=== PATIENT | male | born 1955 | race Caucasian/White ===

== ENCOUNTER 2016-10-15 09:44 | Emergency (ER) | payer OTHER ==
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
[2016-10-15] MEDS ORDERED: HYDROcodone/APAP 5-325MG 1 EACH TAB PO STA (12:04)
--- NOTE | 2016-10-15 12:16 | US ---
EXAMINATION TYPE: US venous doppler duplex UE LT DATE OF EXAM: 10/15/2016 12:00 PM COMPARISON: NONE CLINICAL HISTORY: Pain. SIDE PERFORMED: LEFT TECHNOLOGIST IMPRESSION: PATIENT IN EXTREME PAIN, UNABLE TO LIE BACK FOR RIGHT SUBCLAVIAN COMPARISON Left Arm: Negative for DVT IMPRESSION: THIS EXAMINATION IS SOMEWHAT LIMITED BUT NEGATIVE FOR DVT WITHIN THE LEFT UPPER EXTREMITY.
--- NOTE | 2016-10-15 13:06 | XR ---
EXAMINATION TYPE: XR wrist complete LT DATE OF EXAM: 10/15/2016 10:52 AM CLINICAL HISTORY: Wrist pain for 2 weeks. TECHNIQUE: Frontal, lateral, scaphoid, and oblique images of the left wrist are obtained. COMPARISON: None FINDINGS: There is no acute fracture/dislocation evident in the left wrist. Round lucency consistent with subchondral cystic change in the lunate is present. The overlying soft tissue appears unremark able. IMPRESSION: There is no acute fracture or dislocation in the left wrist. Suspect subchondral cystic change at level of lunate bone.
--- NOTE | 2016-10-15 13:06 | XR ---
EXAMINATION TYPE: XR elbow complete LT DATE OF EXAM: 10/15/2016 10:52 AM CLINICAL HISTORY: Left elbow pain for 2 weeks. TECHNIQUE: Frontal, lateral and oblique images of the left elbow are obtained. COMPARISON: None FINDINGS: There is no acute fracture/dislocation evident in the left elbow. No abnormal fat pad sig ns are seen. Mild spurring at ulnohumeral articulation is present. The overlying soft tissue appears unremarkable. IMPRESSION: Mild spurring ulnohumeral joint.
[2016-10-15 13:20] VITALS: BP 136/79; PULSE 84; RESP 16; TEMP 97.8
== END 2016-10-15 13:21 | disposition home or self-care (01) ==
LOC: EC 09:44
DX: R60.0 Localized edema (principal); M79.602 Pain in left arm; E11.9 Type 2 diabetes mellitus without complications; E78.5 Hyperlipidemia, unspecified; M19.90 Unspecified osteoarthritis, unspecified site; F17.200 Nicotine dependence, unspecified, uncomplicated; Z79.84 Long term (current) use of oral hypoglycemic drugs; Z98.890 Other specified postprocedural states; Z79.899 Other long term (current) drug therapy
CPT/HCPCS: 99284

== ENCOUNTER → 2018-02-08 | Outpatient (CLI) | payer OTHER ==
[2018-02-08 16:21] LABS: Basophils % (A) 0 %; Eosinophils # (A) 0.3 k/uL (0-0.7); Eosinophils % (A) 4 %; HCT 41.3 % (39.0-53.0); HGB 13.8 gm/dL (13.0-17.5); Lymphocytes # (A) 2.4 k/uL (1.0-4.8); Lymphocytes % (A) 36 %; MCH 30.1 pg (25.0-35.0); MCHC 33.4 g/dL (31.0-37.0); MCV 90.1 fL (80.0-100.0); Monocytes # (A) 0.3 k/uL (0-1.0); Monocytes % (A) 5 %; Neutrophils # (A) 3.6 k/uL (1.3-7.7); Neutrophils % (A) 54 %; Platelet Count 356 k/uL (150-450); RBC 4.59 m/uL (4.30-5.90); RDW 12.4 % (11.5-15.5); WBC 6.6 k/uL (3.8-10.6)
== END | disposition home or self-care (01) ==
LOC: LABWHC1 15:31
PROVIDERS: ATTEND Psychiatry & Neurology Pain Medicine
DX: G89.18 Other acute postprocedural pain (principal)
CPT/HCPCS: 36415; 85025

== ENCOUNTER → 2018-07-09 | Outpatient (CLI) | payer OTHER ==
[2018-07-09 12:07] LABS: Basophils % (A) 1 %; Eosinophils # (A) 0.3 k/uL (0-0.7); Eosinophils % (A) 5 %; HGB 13.9 gm/dL (13.0-17.5); Lymphocytes # (A) 3.5 k/uL (1.0-4.8); Lymphocytes % (A) 54 %; MCH 29.3 pg (25.0-35.0); MCHC 33.1 g/dL (31.0-37.0); MCV 88.5 fL (80.0-100.0); Monocytes # (A) 0.4 k/uL (0-1.0); Monocytes % (A) 6 %; Neutrophils # (A) 2.2 k/uL (1.3-7.7); Neutrophils % (A) 33 %; Platelet Count 298 k/uL (150-450); RBC 4.74 m/uL (4.30-5.90); RDW 12.2 % (11.5-15.5); WBC 6.6 k/uL (3.8-10.6)
== END | disposition home or self-care (01) ==
LOC: LABWHC1 11:19
PROVIDERS: ATTEND Psychiatry & Neurology Pain Medicine
DX: S31.109A Unspecified open wound of abdominal wall, unspecified quadrant without penetration into peritoneal cavity, initial encounter (principal)
CPT/HCPCS: 36415; 85025

== ENCOUNTER 2020-10-18 06:46 | Day surgery (SDC) | payer MEDICARE, OTHER ==
[2020-10-16 11:01] VITALS: BMI 23.9
[~2020-10-18 06:46] MED LIST: LIDOCAINE 1% (10MG/ML) FOR IV START INTRADERMA PRN
[2020-10-18 07:14] LABS: Glucose,Whole Blood 172 mg/dL (75-99)
[2020-10-18] MEDS: LACTATED RINGERS 1,000 ML IV SCH ×2 (07:16→07:50)
[2020-10-18] MEDS ORDERED: PROPOFOL 10 MG/ML 20 ML VIAL IV ONE (07:51)
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
--- NOTE | 2020-10-18 08:07 | P.OP ---
Date of Procedure: 10/18/20 Preoperative Diagnosis: Screening colonoscopy Postoperative Diagnosis: Mild diverticulosis Procedure(s) Performed: Colonoscopy Anesthesia: MAC Surgeon: Ermias Irving Pathology: none sent Condition: stable Disposition: PACU Description of Procedure: The patient's placed on the endoscopy table in the lateral position. He received IV sedation. Digital rectal exam was performed which revealed no abnormalities. The prostate was symmetric without nodules. Flexible colonoscope was then placed patient anus and passed throughout the entire colon. The ileocecal valve was visualized. Cecum, ascending and transverse colon appeared normal. In the descending and sigmoid colon there is mild diverticular changes. Scope was then brought back the rectum and this appeared normal. Scope withdrawn for patient.
[2020-10-18 08:30] VITALS: BP 110/72; PULSE 88; RESP 20
== END 2020-10-18 08:35 | disposition home or self-care (01) ==
LOC: ORWHC2ENDO 06:46
PROVIDERS: ATTEND Surgery
DX: Z12.11 Encounter for screening for malignant neoplasm of colon (principal); K57.30 Diverticulosis of large intestine without perforation or abscess without bleeding; E11.9 Type 2 diabetes mellitus without complications; K21.9 Gastro-esophageal reflux disease without esophagitis; E78.5 Hyperlipidemia, unspecified; I10 Essential (primary) hypertension; M19.90 Unspecified osteoarthritis, unspecified site; Z90.89 Acquired absence of other organs; Z98.1 Arthrodesis status; Z98.890 Other specified postprocedural states; F17.200 Nicotine dependence, unspecified, uncomplicated; Z80.9 Family history of malignant neoplasm, unspecified; Z80.42 Family history of malignant neoplasm of prostate; Z80.3 Family history of malignant neoplasm of breast; Z79.84 Long term (current) use of oral hypoglycemic drugs; Z79.891 Long term (current) use of opiate analgesic; Z79.899 Other long term (current) drug therapy
CPT/HCPCS: J2704; G0121

== ENCOUNTER → 2022-01-06 | Outpatient (CLI) | payer MEDICARE, OTHER ==
--- NOTE | 2022-01-06 16:01 | XR ---
Thoracic spine and lumbosacral spine HISTORY: Mid and low back pain 3 views of the thoracic spine, 5 views of lumbosacral spine correlated to prior thoracic spine 09/25/19 13, lumbar spine 09/07/2012 The thoracic spine shows a similar appearance. There is multilevel spondylosis present. Thoracic vert ebral bodies show preserved height and alignment, bone mineralization. Disc spaces are similar, some mild loss of disc height at the intervertebral levels. The lumbar spine shows postoperative change status post lumbosacral fusion L5-S1, intervertebral spac ing block is present, there is associated loss of disc height. Multilevel spondylosis is present. Scl erosis in the posterior elements is consistent with facet arthropathy. Lumbar vertebral bodies show p reserved height, alignment, bone mineralization. There is a punctate metallic density present superim posed over the inferior aspect of the L1 vertebral body posterior elements which is indeterminate. IMPRESSION: Degenerative disc disease, postop changes, indeterminate foreign body noted is an interva l finding.
== END | disposition home or self-care (01) ==
LOC: RADXRMAIN 12:20
PROVIDERS: ATTEND Internal Medicine
DX: M51.34 Other intervertebral disc degeneration, thoracic region (principal); M47.814 Spondylosis without myelopathy or radiculopathy, thoracic region; M47.816 Spondylosis without myelopathy or radiculopathy, lumbar region
CPT/HCPCS: 72072; 72110

== ENCOUNTER → 2022-10-16 | Outpatient (CLI) | payer MEDICARE, OTHER ==
--- NOTE | 2022-10-16 12:30 | XR ---
EXAMINATION TYPE: XR chest 2V DATE OF EXAM: 10/16/2022 COMPARISON: 01/06/2022, 09/24/2012 HISTORY: Smoking and family history of lung cancer TECHNIQUE: Frontal and lateral views of the chest are obtained. FINDINGS: The heart is not enlarged and there is no pulmonary vascular congestion. The lungs are jose a ar and there is no pneumothorax. Osseous density projecting at the lateral aspect of the T9 vertebral body/costovertebral junction is unchanged and present going back to 09/24/2012. There are mild degener ative changes of the thoracic spine which are stable. IMPRESSION: No acute cardiopulmonary process.
== END | disposition home or self-care (01) ==
LOC: RADXRMAIN 11:16
PROVIDERS: ATTEND Internal Medicine
DX: R05.9 Cough, unspecified (principal); Z80.1 Family history of malignant neoplasm of trachea, bronchus and lung
CPT/HCPCS: 71046

== ENCOUNTER → 2022-12-11 | Outpatient (CLI) | payer MEDICARE, OTHER ==
--- NOTE | 2022-12-11 10:07 | MR ---
EXAMINATION TYPE: MR tspine/lspine wo con DATE OF EXAM: 12/11/2022 COMPARISON: MRI lumbar spine December 18, 2012. Thoracic and lumbar spine x-ray January 06, 2022 HISTORY: chronic back pain. History of low back surgery 2008. TECHNIQUE: Multiplanar, multisequence imaging of the thoracic and lumbar spine are performed without IV contrast. FINDINGS: T-SPINE: Spinal cord shows normal course, caliber, and signal as it courses the thoracic spine. Vertebral bod y heights and alignment are satisfactory. No significant posterior disc herniation seen on sagittal i mages. Bone marrow signal intensity is maintained. Review of the axial images shows no significant spinal canal stenosis or neural foraminal narrowing a t any thoracic level. Visualized thorax and upper abdomen show no suspicious abnormality. IMPRESSION: No significant abnormality is seen to account for patient's symptoms. L-SPINE: FINDINGS: Sagittal images of the lumbar spine show vertebral body heights and alignment to appear sta ble and satisfactory. Artifact from posterior interpedicular rods and screws and disc material L5-S1 level is redemonstrated. Multilevel disc desiccation superior to this. Persistent moderate disc space narrowing with heterogeneous type III endplate changes T12-L1 level is redemonstrated. The conus med ullaris remains normal in position and signal ending mid L1 level. The bone marrow signal intensity is within normal limits. Mild to moderate multilevel anterior spurring is seen. Axial images show T12-L1 level show no significant new disc herniation. Spinal canal is preserved. Axial images at L1-L2 and L2-L3 levels remain within normal limits. Axial images at L3-L4 level redemonstrate mild facet arthropathy bilaterally. Spinal canal is preserv ed. Axial images at L4-L5 level redemonstrate Mild facet arthropathy bilaterally. Spinal canal is preser marcos. axial images at L5-S1 level show artifact from disc material and posterior fusion hardware. Successfu l Posterior decompression changes are redemonstrated. Paraspinal muscle bulk is maintained. Roughly 1.9 x 1.2 cm right adrenal mass axial image 30 is redem onstrated. Correlate clinically. This is nonspecific. IMPRESSION: Successful posterior decompression changes lower lumbar spine. Alignment stable and satis factory. No new disc herniations are evident.
== END | disposition home or self-care (01) ==
LOC: RADMRIMAIN 07:05
PROVIDERS: ATTEND Internal Medicine
DX: M54.50 Low back pain, unspecified (principal); G89.29 Other chronic pain
CPT/HCPCS: 72146; 72148

== ENCOUNTER → 2023-02-12 | Outpatient (CLI) | payer MEDICARE, OTHER ==
[2023-02-12 10:09] VITALS: BP 103/53; PULSE 110; RESP 15
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
== END ==
LOC: PNWHC3 09:32
PROVIDERS: ATTEND Specialist
DX: M96.1 Postlaminectomy syndrome, not elsewhere classified (principal); M19.90 Unspecified osteoarthritis, unspecified site; E11.9 Type 2 diabetes mellitus without complications; K21.9 Gastro-esophageal reflux disease without esophagitis; E78.5 Hyperlipidemia, unspecified; I10 Essential (primary) hypertension; F17.200 Nicotine dependence, unspecified, uncomplicated; Z79.899 Other long term (current) drug therapy; Z79.84 Long term (current) use of oral hypoglycemic drugs
CPT/HCPCS: 99211

== ENCOUNTER → 2023-03-05 | Outpatient (CLI) | payer MEDICARE, OTHER ==
--- NOTE | 2023-03-05 12:08 | CA ---
Exercise Stress Test Report Name: Christiano Willis Exam Date: 03/05/2023 09:16 Exam Location: [facility] Stress Ht (in): 69 Wt (lb): 165 BSA: 1.90 Ordering Phys: Govind James MD Referring Phys: GOVIND JAMES,, Technologist: Jeff Cervantes Age: 67 Gender: M : 1955 Procedure CPT: Indications: R07.9 CHEST PAIN, UNSPECIFIED ICD-10 Codes: Patient History: Chest pain Medications: Meds past 24 hrs: Pretest Chest Pain: STRESS TEST Ronald Protocol Exercise Duration (min:sec): 06:[address] Depressions (mm): Angina Score: Yu Score: Resting HR (bpm): 83 Peak HR (bpm): 158 Resting BP (mmHg): 104 / 71 Peak BP (mmHg): 167 / 81 MPHR: 155 Target HR: 132 % MPHR: 102 METS: 7.1 Total Dose: Peak Dose: Atropine: Double Product: 48702 BP Response: Stress Termination: Reached target heart rate Stress Symptoms: No chest pain or symptoms Stress Summary: ECG ANALYSIS Resting ECG: Normal sinus rhythm, normal axis Stress ECG: No significant ST or T-wave changes that are diagnostic for ischemia by ST segment analysis. There were no sustained arrhythmias or ectopic rhythms. CONCLUSIONS Fair exercise tolerance for age achieving 7.1 mets Normal hemodynamic and heart rate response to treadmill exercise Nonischemic ECG response to treadmill exercise Normal treadmill stress test Dr Scooter Jane (Electronically Signed) Final Date: 05 March 2023 12:08
== END | disposition home or self-care (01) ==
LOC: RADNMMAIN 08:47
PROVIDERS: ATTEND Internal Medicine
DX: I20.9 Angina pectoris, unspecified (principal); R07.9 Chest pain, unspecified
CPT/HCPCS: 93017

== ENCOUNTER → 2023-08-13 | Outpatient (CLI) | payer MEDICARE, OTHER ==
--- NOTE | 2023-08-13 13:28 | XR ---
EXAMINATION TYPE: XR knee complete bilateral DATE OF EXAM: 08/13/2023 COMPARISON: NONE HISTORY: Pain TECHNIQUE: Three views are submitted. FINDINGS: Mild bilateral narrowing of the medial compartment of the knee joint. There is vascular calcification s. No erosive changes.. Osseous structures are intact. No acute fracture seen. IMPRESSION: 1. Mild bilateral osteoarthritis..
== END | disposition home or self-care (01) ==
LOC: RADXRMAIN 12:42
PROVIDERS: ATTEND Internal Medicine
DX: M17.0 Bilateral primary osteoarthritis of knee (principal)

== ENCOUNTER 2025-01-16 05:45 | Day surgery (SDC) | payer MEDICARE, OTHER ==
[2025-01-13 08:56] VITALS: BMI 24.3
[2025-01-16] MEDS ORDERED: ALPRAZolam 0.25 MG TAB PO PRN (05:56)
[2025-01-16] MEDS ORDERED: NITROGLYCERIN SL TABS 0.4 MG TAB SUBLINGUAL PRN ×2 (05:56→08:46)
[2025-01-16] MEDS ORDERED: ALPRAZolam 0.5 MG TAB PO PRN (05:56)
[2025-01-16] MEDS ORDERED: ATORVASTATIN 80 MG TAB PO STA (05:56)
[2025-01-16] MEDS: SODIUM CHLORIDE 0.9% 1,000 ML in EMPTY BAG 1 BAG IV SCH (06:16)
[2025-01-16] MEDS: ASPIRIN 325 MG TAB PO STA (06:17)
[2025-01-16] MEDS: IV FLUID CONTINUATION 1,000 ML IV ONE (06:18)
[2025-01-16 06:32] VITALS: RESP 16; TEMP 97.8
[2025-01-16 06:39] LABS: Glucose,Whole Blood 199 mg/dL (70-110)
[2025-01-16 06:39] LABS: Basophils # (A) 0.02 10*3/uL (0.00-0.10); Basophils % (A) 0.3 %; Eosinophils # (A) 0.31 10*3/uL (0.04-0.35); Eosinophils % (A) 4.6 %; HCT 41.3 % (39.6-50.0); HGB 14.4 g/dL (13.0-17.0); Lymphocytes # (A) 3.01 10*3/uL (0.90-5.00); Lymphocytes % (A) 44.6 %; MCH 31.8 pg (27.0-32.0); MCHC 34.9 g/dL (32.0-37.0); MCV 91.2 fL (80.0-97.0); Mean Platelet Volume 9.1 fL (9.5-12.2); Monocytes # (A) 0.57 10*3/uL (0.20-1.00); Monocytes % (A) 8.4 %; Neutrophils # (A) 2.81 10*3/uL (1.80-7.70); Neutrophils % (A) 41.7 %; Platelet Count 226 10*3/uL (140-440); RBC 4.53 10*6/uL (4.40-5.60); RDW 12.3 % (11.5-14.5); WBC 6.75 10*3/uL (4.50-10.00)
[2025-01-16] MEDS: METOPROLOL SUCCINATE (ER) 25 MG TAB.ER.24H PO STA (07:08)
[2025-01-16 07:19] LABS: African American GFR (CKD) 60 (>60 ml/min/1.73 sqM); Anion Gap 13 mmol/L; Blood Urea Nitrogen 29 mg/dL (9-20); Calcium 10.1 mg/dL (8.4-10.2); Carbon Dioxide 16 mmol/L (22-30); Chloride 106 mmol/L (98-107); Glucose 199 mg/dL (74-99); Non-African American GFR(CKD) 52 (>60 ml/min/1.73 sqM); Potassium 4.5 mmol/L (3.5-5.1); Sodium 135 mmol/L (137-145)
[2025-01-16] MEDS: HEPARIN SODIUM,PORCINE 10,000 UNIT in SODIUM CHLORIDE 0.9% 1,000 ML IRRIGATION PRN (07:20)
[2025-01-16] MEDS: HEPARIN SODIUM,PORCINE (1 ML) 2,500 UNIT in SODIUM CHLORIDE 0.9% 250 ML IRRIGATION PRN (07:20)
[2025-01-16] MEDS: LIDOCAINE 1% INJ 10MG/ML (20 ML MDV) SQ ONE (07:39)
[2025-01-16] MEDS: fentaNYL (PF) 50 MCG/1 ML VIAL IVP ONE (07:41)
[2025-01-16] MEDS: VERAPAMIL SYRINGE (5 MG/10 ML) INTRAARTER ONE (07:41)
[2025-01-16] MEDS: MIDAZOLAM 2 MG/2 ML VIAL IVP ONE (07:41)
[2025-01-16] MEDS: HEPARIN SODIUM 1,000 UN/ML (10ML VL) IVP ONE ×2 (07:47)
[2025-01-16] MEDS: CLOPIDOGREL 75 MG TAB PO ONE (08:03)
[2025-01-16] MEDS: IOPAMIDOL-300 100ML BTL INJ ONE ×2 (08:14→08:26)
[2025-01-16] MEDS: NITROGLYCERIN 1000MCG/10ML SYRINGE INTRACORON ONE (08:15)
[2025-01-16] MEDS ORDERED: ZOLPIDEM 5 MG TAB PO PRN (08:46)
[2025-01-16] MEDS ORDERED: ATROPINE SULFATE 0.1 MG/ML 10ML SYRINGE IV PRN (08:46)
[2025-01-16] MEDS ORDERED: RX INFO: IV CONTRAST WAS GIVEN 1 EACH MISC MISCELLANE PRN (08:46)
[2025-01-16] MEDS ORDERED: MAG HYDROX/AL HYDROX/SIMETH 30 ML CUP PO PRN (08:46)
--- NOTE | 2025-01-16 08:59 | P.CARDCATH ---
Date of Procedure: 01/16/25 Description of Procedure: Cardiac Catheterization: The patient is a 69-year-old male with a history of hypertension, hyperlipidemia, diabetes mellitus and chronic tobacco use who has been complaining of progressive symptoms of exertional chest discomfort, relieved with rest. Recommendations were made regarding cardiac catheterization, the risks and the complications were discussed with the patient who is in full understanding and agreement. Procedure Description: Patient was brought to cardiac cath technologist in fasting semi-sedated state after receiving Fentanyl and Benadryl achieiving moderate conscious sedated state. Using Xylocaine Anesthesia and modified Seldinger technique, a 6-Sami sheath was introduced in the 5 radial artery . Subsequently, selective coronary angiography was performed using a 5-Sami 3.5 bend Marcelino catheter. Multiple views of the coronary artery including hemiaxial views were obtained. The right Marcelino catheter was used to cross the aortic valve and LVEDP was calculated. PCI: After removing the catheters a 6 Sami AL 0.75 guiding catheter was introduced into the system, after cannulating the right coronary ostium a 0.014 BMW J-wire was positioned in the distal RCA. Subsequently a 2.5 x 12 mm trek balloon was advanced and 2 inflations at 8 andreea were done. After removing the balloon a [place] eye IVUS catheter was introduced, images were obtained. The distal lumen measured 3.5 mm in diameter with mild to moderate calcification. Subsequently a 3.5 x 38 mm Xience Skypoint stent was advanced and deployed at 16 andreea. Repeat IVUS imaging was performed and revealed mild under deployment in the mid segment of the stent. At that time a 3.5 x 20 mm NC trek balloon was advanced and 3 inflations in a maximum of 12 andreea were done. After the last inflation the wire was removed and images were obtained and revealed stable successful stenting. Following that, catheter and sheath were removed. Hemostasis was obtained with deployment of vascular band . There was no immediate complication. Patient was returned to room in stable condition. Of note, the patient received a total of 6000 units of intravenous heparin as well as intra-arterial verapamil. His ACT was monitored. He received an oral loading dose of clopidogrel. He had chest discomfort that improved at the end of the procedure. He had mild EKG changes that resolved. Findings: Fluoroscopy: Severe calcification of all the coronary arteries was noted. Left main: This is a large size vessel, bifurcating into LAD and left circumflex, the left main has 20 to 30% plaque in the midsegment, the rest of the vessel has no high-grade stenosis. LAD: This is a large size vessel, reaching to the apex giving rise to 2 small diagonal branch. The LAD proximally has 20 to 30% plaque, there is another 30% plaque in the midsegment. The rest of the vessel has no high-grade stenosis. Left circumflex: This is a large nondominant vessel giving rise to 2 obtuse marginal branch. The first obtuse marginal branch has 95% stenosis proximally. There is another plaque of 80% in the mid left circumflex at the takeoff of the second obtuse marginal branch. The rest of the vessel has no high-grade stenosis. RCA: This is a large dominant vessel, bifurcating distally to PDA and PLV. The proximal RCA has 20% plaque. There is a 95% stenosis in the mid RCA another 70 to 80% stenosis in the distal RCA with diffuse pattern of disease. Left Ventriculogram: Not performed Hemodynamics: There was no gradient across aortic valve, LVEDP was 12-16 mmHg Conclusion: 1. Calcified coronary arteries 2. Severe stenosis in the mid and distal RCA 3. Severe stenosis in OM1 and mid left circumflex 4. Mild disease in the left main 5. Mild disease in the proximal and mid LAD 6. Successful stenting of the mid and distal RCA with reduction of stenosis from 90% to 0% with IVUS imaging and MARGOT-3 flow. Recommendations: The patient will continue on aspirin and clopidogrel without any interruption for 6 months in addition to aggressive coronary risk modification, maintaining LDL below 70 mg/dL. The importance of smoking cessation was discussed with him. The patient will be referred to [place] quit line.. The findings and the recommendations were discussed with the patient and the family and they were in full understanding and agreement. Duration of sedation is 48 minutes.
[2025-01-16] MEDS ORDERED: glipiZIDE 5 MG TAB PO SCH (09:00)
[2025-01-16] MEDS ORDERED: SODIUM CHLORIDE 0.9% 1,000 ML in EMPTY BAG 1 BAG IV SCH (09:00)
[2025-01-16] MEDS ORDERED: METOPROLOL SUCCINATE (ER) 25 MG TAB.ER.24H PO SCH (09:00)
[2025-01-16 14:17] VITALS: BP 123/77; PULSE 85
[2025-01-16] MEDS ORDERED: lisinopriL 10 MG TAB PO SCH (21:00)
[2025-01-16] MEDS ORDERED: ATORVASTATIN 40 MG TAB PO SCH (21:00)
[2025-01-16] MEDS ORDERED: NON FORMULARY DRUG (Empagliflozin [Jardiance] 25 MG Tablet) PO SCH (21:00)
[2025-01-17] MEDS ORDERED: ASPIRIN 81 MG PO SCH (09:00)
[2025-01-17] MEDS ORDERED: CLOPIDOGREL 75 MG TAB PO SCH (09:00)
== END 2025-01-16 13:43 | disposition home or self-care (01) ==
LOC: CATHCVL 05:45
PROVIDERS: ATTEND Internal Medicine Interventional Cardiology
DX: I25.10 Atherosclerotic heart disease of native coronary artery without angina pectoris (principal); I10 Essential (primary) hypertension; E11.9 Type 2 diabetes mellitus without complications; E78.2 Mixed hyperlipidemia; Z79.84 Long term (current) use of oral hypoglycemic drugs; Z79.899 Other long term (current) drug therapy
CPT/HCPCS: 92978; 93458; 80048; 85025; 99152; 99153; C9600; C1769 ×3; C1887; C1894; C1725 ×2; C1874; C1753; J2250; J1644 ×3; J2003; Q9967; J3010; J2305

== ENCOUNTER → 2025-02-16 | Outpatient (CLI) | payer MEDICARE, OTHER ==
[2025-02-16 15:44] LABS: ALT 18 U/L (10-49); AST 15 U/L (14-35); Cholesterol 184.00 mg/dL (0.00-200.00); HDL Cholesterol 38.10 mg/dL (40.00-60.00); LDL Cholesterol,Calculated 103.1 mg/dL (0.0-131.0); Triglycerides 214.00 mg/dL (0.00-149.00); VLDL Calculation 42.80 mg/dL (5.00-40.00)
== END | disposition home or self-care (01) ==
LOC: LABWHC1 10:05
PROVIDERS: ATTEND Nurse Practitioner Adult Health
DX: E78.2 Mixed hyperlipidemia (principal)
CPT/HCPCS: 36415; 80061; 84450; 84460

== ENCOUNTER → 2025-02-22 | Day surgery (SDC) | payer MEDICARE, OTHER ==
[2025-02-16 16:52] VITALS: BMI 24.3
[~2025-02-22] MED LIST changes: +ALPRAZolam 0.25 MG TAB PO PRN; +ALPRAZolam 0.5 MG TAB PO PRN; +ASPIRIN 81 MG PO SCH; +ATORVASTATIN 40 MG TAB PO SCH; +ATROPINE SULFATE 0.1 MG/ML 10ML SYRINGE IV PRN; +DAPAGLIFLOZIN PROPANEDIOL 10 MG TABLET PO SCH; +ERGOCALCIFEROL 1,250 MCG (50,000 IU) CAPSULE PO SCH; +GABAPENTIN 100 MG CAP PO SCH; +HYDROcodone/APAP 10-325MG 1 EACH TAB PO SCH; -LIDOCAINE 1% (10MG/ML) FOR IV START INTRADERMA PRN; +MAG HYDROX/AL HYDROX/SIMETH 30 ML CUP PO PRN; +METOPROLOL SUCCINATE (ER) 25 MG TAB.ER.24H PO SCH; +NITROGLYCERIN SL TABS 0.4 MG TAB SUBLINGUAL PRN; +RX INFO: IV CONTRAST WAS GIVEN 1 EACH MISC MISCELLANE PRN; +SODIUM CHLORIDE 0.9% 1,000 ML in EMPTY BAG 1 BAG IV SCH; +ZOLPIDEM 5 MG TAB PO PRN; +glipiZIDE 5 MG TAB PO SCH
[2025-02-22] MEDS: SODIUM CHLORIDE 0.9% 1,000 ML in EMPTY BAG 1 BAG IV SCH (07:39)
[2025-02-22] MEDS: ASPIRIN 325 MG TAB PO STA (07:39)
[2025-02-22 07:42] LABS: Glucose,Whole Blood 198 mg/dL (70-110)
[2025-02-22] MEDS: IV FLUID CONTINUATION 1,000 ML IV ONE (07:42)
[2025-02-22 07:46] VITALS: RESP 16; TEMP 98.1
[2025-02-22 07:46] LABS: Basophils # (A) 0.02 10*3/uL (0.00-0.10); Basophils % (A) 0.2 %; Eosinophils # (A) 0.33 10*3/uL (0.04-0.35); Eosinophils % (A) 3.5 %; HCT 44.5 % (39.6-50.0); HGB 16.0 g/dL (13.0-17.0); Lymphocytes # (A) 3.84 10*3/uL (0.90-5.00); Lymphocytes % (A) 41.3 %; MCH 32.8 pg (27.0-32.0); MCHC 36.0 g/dL (32.0-37.0); MCV 91.2 fL (80.0-97.0); Monocytes # (A) 0.65 10*3/uL (0.20-1.00); Monocytes % (A) 7.0 %; Neutrophils # (A) 4.44 10*3/uL (1.80-7.70); Neutrophils % (A) 47.8 %; Platelet Count 285 10*3/uL (140-440); RBC 4.88 10*6/uL (4.40-5.60); RDW 11.6 % (11.5-14.5); WBC 9.30 10*3/uL (4.50-10.00)
[2025-02-22 08:13] LABS: African American GFR (CKD) 82 (>60 ml/min/1.73 sqM); Anion Gap 16 mmol/L; Blood Urea Nitrogen 31 mg/dL (9-20); Calcium 10.4 mg/dL (8.4-10.2); Carbon Dioxide 16 mmol/L (22-30); Chloride 107 mmol/L (98-107); Glucose 189 mg/dL (74-99); Non-African American GFR(CKD) 71 (>60 ml/min/1.73 sqM); Potassium 4.5 mmol/L (3.5-5.1); Sodium 139 mmol/L (137-145)
[2025-02-22] MEDS: HEPARIN SODIUM,PORCINE 10,000 UNIT in SODIUM CHLORIDE 0.9% 1,000 ML IRRIGATION PRN (09:17)
[2025-02-22] MEDS: HEPARIN SODIUM,PORCINE (1 ML) 2,500 UNIT in SODIUM CHLORIDE 0.9% 250 ML IRRIGATION PRN (09:17)
[2025-02-22] MEDS: MIDAZOLAM 2 MG/2 ML VIAL IVP ONE (09:35)
[2025-02-22] MEDS: LIDOCAINE 1% INJ 10MG/ML (20 ML MDV) SQ ONE (09:35)
[2025-02-22] MEDS: fentaNYL (PF) 50 MCG/1 ML VIAL IVP ONE (09:35)
[2025-02-22] MEDS: VERAPAMIL 2.5 MG/ML 4 ML VIAL INTRAARTER ONE (09:37)
[2025-02-22] MEDS: HEPARIN SODIUM 1,000 UN/ML (10ML VL) IVP ONE ×2 (09:41→10:06)
[2025-02-22] MEDS: IOPAMIDOL-370 100ML BTL INTRATHECA ONE ×2 (10:32)
--- NOTE | 2025-02-22 11:01 | P.CARDCATH ---
Date of Procedure: 02/22/25 Description of Procedure: Cardiac Catheterization: The patient is a 69-year-old male with a history of hypertension, hyperlipidemia, diabetes mellitus who few weeks ago presented with an abnormal stress test and symptoms consistent with ischemic heart disease was found to have significant obstructive disease in the RCA, ramus intermedius and the left circumflex. He underwent stenting of the RCA. He is scheduled to undergo staged PCI of the ramus intermedius and the left circumflex if the RCA is patent . Recommendations were made regarding cardiac catheterization, the risks and the complications were discussed with the patient who is in full understanding and agreement. Procedure Description: Patient was brought to produce laborer in fasting semi-sedated state after receiving Fentanyl and Benadryl achieiving moderate conscious sedated state. Using Xylocaine Anesthesia and modified Seldinger technique, a 6-[place] sheath was introduced in the right radial artery . Subsequently, selective coronary angiography was performed using a 5-Azerbaijani 3.5 bend right Marcelino and 6 [place] CLS 3.5 guiding catheter. Multiple views of the coronary artery including hemiaxial views were obtained. The right Marcelino catheter was used to cross the aortic valve and LVEDP was calculated. PCI: After cannulating the left main with a CLS 3.5 guiding catheter a 0.014 BMW J- wire was advanced into the ramus intermedius. Subsequently a [place] eye IVUS catheter was introduced and imaging was performed, it revealed a ramus intermedius lumen of 2.5 mm. The minimal area of the left main was 10 mm. Subsequently another 0.014 BMW J-wire was advanced into the left circumflex and positioned distally. A 2.5 x 12 mm trek balloon was advanced and 1 inflation in the ramus intermedius and subsequently in the left circumflex was done. Subsequently a 3.0 x 18 mm Xience Skypoint stent was advanced in the proximal left circumflex and dilated at 14 andreea. After removing the balloon a 2.25 x 18 mm Xience Skypoint stent was positioned in the ramus intermedius and deployed at 16 andreea. After removing the balloon IVUS imaging of the ramus intermedius was performed and revealed mild under deployment proximally, subsequently a 2.5 x 12 mm NC trek balloon was advanced and 1 inflation was done at 10 andreea. After the last inflation the wire was removed and images were obtained and revealed stable successful stenting. Following that, catheter and sheath were removed. Hemostasis was obtained with deployment of vascular band . There was no immediate complication. Patient was returned to room in stable condition. Of note, the patient received a total of 6500 units of intravenous heparin as well as intra-arterial verapamil. He was continued on clopidogrel. His ACT was monitored. He had chest discomfort with the inflations that resolved at the end of the procedure. Findings: Fluoroscopy: Calcification of the left main and proximal LAD was noted. Left main: This is a large size vessel trifurcating into ramus intermedius, LAD and left circumflex. The body of the left main has a 40% plaque. LAD: This is a large size vessel, reaching to the apex, the proximal LAD has 20 to 30% plaque, the rest of the vessel has no high-grade stenosis. Left circumflex: This is a large size vessel giving rise to 2 obtuse marginal branch. The proximal left circumflex has a 90% stenosis, the rest of the vessel has no high-grade stenosis. Ramus intermedius: This is a large size vessel that has a 99% stenosis proximal, the rest of the vessel has no high-grade stenosis. RCA: The this is a large dominant vessel, bifurcating distally to PDA and PLV. The proximal RCA has 20 to 30% plaque. The stented segment in the mid and distal RCA is patent with no evidence of in-stent restenosis. Left Ventriculogram: Not performed Hemodynamics: There was no gradient across the aortic valve, LVEDP was 6-8 mmHg Conclusion: 1. Patent stent in the RCA with mild disease proximally 2. Mild disease in the body of the left main 3. Significant stenosis of the ramus intermedius 4. Significant disease in the proximal left circumflex 5. Successful stenting of the ramus intermedius with reduction of stenosis from 99% to less than 5% with IVUS imaging and MARGOT-3 flow. 6. Successful stenting of the proximal left circumflex with reduction stenosis from 85% to less than 5% with MARGOT-3 flow. Recommendations: The patient will continue on aspirin and clopidogrel for 1 year without any interruption in addition to aggressive coronary risks modifications, maintaining LDL to less than 70 mg/dL. He will be referred to [place] quit line. The findings and the recommendations were discussed with the patient and the family and they were in full understanding and agreement. Duration of sedation is 56 minutes.
[2025-02-22] MEDS: CLOPIDOGREL 75 MG TAB PO SCH (13:53)
[2025-02-22 18:27] VITALS: BP 139/76; PULSE 93
== END | disposition home or self-care (01) ==
LOC: CATHCVL 07:10
PROVIDERS: ATTEND Internal Medicine Interventional Cardiology
DX: I25.10 Atherosclerotic heart disease of native coronary artery without angina pectoris (principal); I25.84 Coronary atherosclerosis due to calcified coronary lesion; I25.83 Coronary atherosclerosis due to lipid rich plaque; Z95.5 Presence of coronary angioplasty implant and graft; I10 Essential (primary) hypertension; E11.9 Type 2 diabetes mellitus without complications; E78.2 Mixed hyperlipidemia; F17.210 Nicotine dependence, cigarettes, uncomplicated; Z79.02 Long term (current) use of antithrombotics/antiplatelets; Z79.82 Long term (current) use of aspirin; Z79.84 Long term (current) use of oral hypoglycemic drugs; Z79.899 Other long term (current) drug therapy
CPT/HCPCS: 92978; 93458; 80048; 85025; C9600; C9601; C1769 ×3; C1887; C1894; C1725 ×2; C1753; C1874 ×2; J2250; J1644 ×3; J2003; Q9967; J3010